=== PATIENT | male | born 1995 | race Caucasian/White ===

== ENCOUNTER 2019-10-05 22:31 | Emergency (ER) | payer BC ==
[~2019-10-05] VITALS: Ht 177.8 cm; Wt 56.4 kg
[2019-10-05 22:32] VITALS: BP 132/81
== END 2019-10-06 00:46 | disposition home or self-care (01) ==
LOC: ED 10-06 00:44
DX: I30.0 Acute nonspecific idiopathic pericarditis (principal)
CPT/HCPCS: 71046; 93005; 99283